=== PATIENT | female | born 1960 | race African-American/Black ===

== ENCOUNTER 2016-11-11 17:56 | Emergency (ER) | payer MEDICAID ==
[~2016-11-11] VITALS: Ht 165.1 cm; Wt 76.2 kg
[2016-11-11] MEDS ORDERED: ZANTAC150 MG ORAL (18:05)
[2016-11-11] MEDS ORDERED: ATENOLOL25 MG ORAL (18:05)
--- NOTE | 2016-11-11 18:58 | Emergency Room Report ---
History of Present Illness General Chief Complaint: General Complaint Source: Patient Present Illness HPI [id number] with 1 week with multiple episodes of sharp pain to mid-sternum, 3 min in duration per episode. Pain is non-radiating, not heavy, no associ nausea/ vomiting, diaphoresis. History of HTN but stopped taking medication to try to correct it "naturally." Doesnt smoke, drink or do drugs. No fam history of AMI at young age. No previous AMI, PE. Asymptomatic currently. Allergies: Coded Allergies: LISINOPRIL (Unverified Adverse Reaction, Unknown, Rash, 11/24/15) Patient History Past Medical History: HTN Past Surgical History: none Pertinent Family History: none Social History: Denies: alcohol use, drug use, smoking Now: No Immunizations: UTD Reviewed Nursing Documentation: PMH: Agreed, PSxH: Agreed Nursing Documentation-PMH Past Medical History: No History, Except For Hx Cardiac Problems: Yes Hx Hypertension: Yes Hx Pacemaker: No Hx Asthma: No Hx Diabetes: No Hx Cancer: No Hx Gastrointestinal Problems: Yes - GERD Hx Dialysis: No Hx Neurological Problems: No Hx Cerebrovascular Accident: No Hx Seizures: No Review of Systems All Other Systems: negative except mentioned in HPI Physical Exam Vital Signs Date Time Temp Pulse Resp B/P Pulse Ox O2 Delivery O2 Flow Rate FiO2 11/11/16 18:02 97.9 63 14 134/78 100 Room Air Sp02 EP Interpretation: reviewed, normal General Appearance: normal inspection, well appearing, no apparent distress, alert, GCS 15, non-toxic Head: normocephalic, atraumatic Eyes: bilateral eye EOMI, bilateral eye PERRL ENT: normal ENT inspection, hearing grossly normal, normal voice Neck: normal inspection, full range of motion, supple, no bony tend Respiratory: normal inspection, lungs clear, normal breath sounds, no respiratory distress, no retraction, no wheezing, other, chest symmetrical, palpation of chest normal, percussion normal Cardiovascular #1: regular rate, rhythm, no edema Gastrointestinal: normal inspection, normal bowel sounds, non tender, soft, no guarding, no hernia Genitourinary: no CVA tenderness Musculoskeletal: normal inspection, back normal, normal range of motion, Cheng' s Sign negative Neurologic: normal inspection, alert, oriented x3, responsive, race and sports book writer III-XII nml as tested, motor strength/tone normal, speech normal Psychiatric: normal inspection, judgement/insight normal, mood/affect normal Skin: normal inspection, normal color, no rash Medical Decision Making Diagnostic Impression: Primary Impression: Chest pain Qualified Codes: R07.9 - Chest pain, unspecified ER Course Chest pain for 1 week. Risk factors for CAD include gender, age, ethnicity, history of HTN ECG is NSR. No ischemia Labs: No leuks. H&h stable. Trop 0. Unlikely ACS given duration, sharp quality of pain, intermittent resolution, normal ECG and negative troponin HEART score 2: for score of 0-3: 0.9-1.7% risk of adverse cardiac event. Advised PMD followup for Stress test DC home EKG Diagnostic Results Rate: normal Rhythm: NSR ST Segments: no acute changes Rhythm Strip Diag. Results EP Interpretation: yes Rate: 60 Rhythm: NSR, no PVC's, no ectopy Last Vital Signs Date Time Temp Pulse Resp B/P Pulse Ox O2 Delivery O2 Flow Rate FiO2 11/11/16 18:02 97.9 63 14 134/78 100 Room Air Status: improved Disposition: HOME, SELF-CARE Referrals: NON PHYSICIAN (PCP) YAZMIN EPSTEIN M.D. Nov 11, 2016 18:58
[2016-11-11 19:00] LABS: BASOPHILS % (AUTO) 1.1 % (0.0-2.0); EOSINOPHILS % (AUTO) 1.9 % (0.0-3.0); LYMPHOCYTES % (AUTO) 40.7 % (20.0-45.0); MEAN CORPUSCULAR HEMOGLOBIN 29.4 PG (27.0-31.0); MEAN CORPUSCULAR HGB CONC 32.5 G/DL (32.0-36.0); MEAN CORPUSCULAR VOLUME 90 FL (80-99); MEAN PLATELET VOLUME 7.3 FL (6.5-10.1); NEUTROPHILS % (AUTO) 50.3 % (45.0-75.0); PLATELET COUNT 272 K/UL (150-450); RED BLOOD COUNT 4.73 M/UL (4.20-5.40); WHITE BLOOD COUNT 7.1 K/UL (4.8-10.8)
[2016-11-11 19:04] VITALS: BP 140/78
[2016-11-11 19:20] LABS: ALANINE AMINOTRANSFERASE 17 U/L (3-33); ALBUMIN/GLOBULIN RATIO 1.2 (1.0-2.7); ANION GAP 15 (5-15); ASPARTATE AMINO TRANSFERASE 27 U/L (5-40); CALCIUM 9.9 mg/dL (8.6-10.2); CARBON DIOXIDE 27 mEQ/L (20-30); CHLORIDE 94 mEQ/L (98-107); CREATININE 0.9 mg/dL (0.5-0.9); GLOMERULAR FILTRATION RATE > 60 mL/min (>60); HEMOLYSIS 2; POTASSIUM 4.6 mEQ/L (3.4-4.9); SODIUM 136 mEQ/L (135-145); TOTAL PROTEIN 8.7 g/dL (6.6-8.7); TROPONIN I < 0.30 ng/mL (<=0.30)
[2016-11-11 19:53] LABS: CKMB 2.7 ng/mL (< 3.8)
[2016-11-11 19:55] VITALS: BP 147/79
--- NOTE | 2016-11-12 10:18 | Diagnostic Imaging Report ---
Indication: Chest pain Technique: XRAY CHEST 1 V Comparison: 11/25/15 Findings: The cardiomediastinal silhouette is within normal limits. There is no focal consolidation, pneumothorax or pleural effusion. Osseous structures demonstrate no acute abnormality. Impression: No acute cardiopulmonary disease.
--- NOTE | 2016-11-15 16:15 | Cardiology Report ---
APPROVED REPORT EKG Measurement Heart [id number] Sinus bradycardia Otherwise normal ECG
== END 2016-11-11 19:58 | disposition home or self-care (01) ==
LOC: EMR 18:34
DX: R07.9 Chest pain, unspecified (principal); I10 Essential (primary) hypertension; K21.9 Gastro-esophageal reflux disease without esophagitis; Z79.899 Other long term (current) drug therapy
CPT/HCPCS: 36415; 71010; 80053; 82550; 82553; 84484; 85025; 93005; 99283

== ENCOUNTER → 2017-02-13 | Emergency (ER) | payer MEDICAID ==
[~2017-02-13] VITALS: Ht 165.1 cm; Wt 74.8 kg
[~2017-02-13] MED LIST: ALDACTAZIDE 251 EACH ORAL; ATENOLOL25 MG ORAL; CYCLOBENZAPRINE10 MG ORAL; HYDROCHLOROTHIA25 MG ORAL; IBUPROFEN600 MG ORAL; NORCO 5-325 TA1 EACH ORAL; Norco 5mg/325mg tab ORAL ONE; ZANTAC150 MG ORAL
[2017-02-13 18:26] VITALS: BP 158/89
--- NOTE | 2017-02-13 22:04 | Emergency Room Report ---
History of Present Illness General Chief Complaint: Pain Source: Patient Present Illness HPI 56-year-old female presents ED complaining of neck pain x3 days. Patient states that she has history of cervical radiculopathy previously diagnosed on MRI as. Patient states she had worsening of pain for last 3 days for she felt a pops and electronic shocks of her neck radiating to her shoulders. Pain is 8/ 10. No other aggravating or leading factors. Denies any recent trauma. Denies any other associated symptoms Allergies: Coded Allergies: LISINOPRIL (Unverified Adverse Reaction, Unknown, Rash, 11/24/15) Patient History Past Medical History: HTN, GERD Past Surgical History: none Pertinent Family History: none Social History: Denies: alcohol use, drug use, smoking Now: No Immunizations: UTD Reviewed Nursing Documentation: PMH: Agreed, PSxH: Agreed Nursing Documentation-PMH Hx Hypertension: Yes Hx Pacemaker: No Hx Asthma: No Hx Diabetes: No Hx Cancer: No Hx Gastrointestinal Problems: Yes - GERD Hx Dialysis: No Hx Neurological Problems: No Hx Cerebrovascular Accident: No Hx Seizures: No Review of Systems All Other Systems: negative except mentioned in HPI Physical Exam Vital Signs Date Time Temp Pulse Resp B/P Pulse Ox O2 Delivery O2 Flow Rate FiO2 02/13/17 17:48 97.9 62 16 158/89 99 Room Air Sp02 EP Interpretation: reviewed, normal General Appearance: no apparent distress, alert, GCS 15, non-toxic Head: normocephalic, atraumatic Eyes: bilateral eye PERRL, bilateral eye normal inspection ENT: hearing grossly normal, normal pharynx, no angioedema, normal voice Neck: full range of motion, supple/symm/no masses, tender lateral Respiratory: chest non-tender, lungs clear, normal breath sounds, speaking full sentences Cardiovascular #1: regular rate, rhythm, no edema Cardiovascular #2: 2+ carotid (R), 2+ carotid (L), 2+ radial (R), 2+ radial (L) , 2+ dorsalis pedis (R), 2+ dorsalis pedis (L) Gastrointestinal: normal bowel sounds, non tender, soft, non-distended, no guarding, no rebound Rectal: deferred Genitourinary: normal inspection, no CVA tenderness Musculoskeletal: back normal, gait/station normal, normal range of motion, non- tender Neurologic: alert, oriented x3, responsive, motor strength/tone normal, sensory intact, speech normal Psychiatric: judgement/insight normal, memory normal, mood/affect normal, no suicidal/homicidal ideation Reflexes: 3+ bicep (R), 3+ bicep (L), 3+ tricep (R), 3+ tricep (L), 3+ knee (R) , 3+ knee (L) Skin: normal color, no rash, warm/dry, well hydrated Lymphatic: no adenopathy Medical Decision Making Diagnostic Impression: Primary Impression: Neck pain ER Course Hospital Course 56-year-old F presents to ED complaining of neck pain. h/o cervical radiculopathy Differential diagnoses include: Fracture, dislocation, sprain, contusion Clinical course Patient placed on stretcher. After initial history and physical, I ordered pain medications and CT Cspine CT shows degenerative disc disease. Straightening. No acute process. On reassessment pain is improved Diagnosis - neck pain Stable and discharged to home with prescription for Motrin, [place], Flexeril. Apply ice, keep elevated. weight bear as tolerated. Followup with PMD. Return to ED if symptoms recur or worsen CT/MRI/US Diagnostic Results CT/MRI/US Diagnostic Results : Imaging Test Ordered: CT c spine Impression straightening. DDD. no acute fx Last Vital Signs Date Time Temp Pulse Resp B/P Pulse Ox O2 Delivery O2 Flow Rate FiO2 02/13/17 18:48 97.9 02/13/17 18:26 74 16 158/89 99 Room Air Status: improved Disposition: HOME, SELF-CARE Condition: Stable Scripts Cyclobenzaprine Hcl* (FLEXERIL*) 10 Mg Tablet 10 MG ORAL TID Y for Muscle Spasm, #20 TAB Prov: JUAN LAN M.D. 02/13/17 Hydrocodone Bit/Acetaminophen 5-325* (NORCO 5-325*) 1 Each Tablet 1 TAB ORAL Q6H Y for For Pain, #10 TAB 0 Refills Prov: JUAN LAN M.D. 02/13/17 Ibuprofen* (MOTRIN*) 600 Mg Tablet 600 MG ORAL Q8H Y for For Pain, #30 TAB 0 Refills Prov: JUAN LAN M.D. 02/13/17 Patient Instructions: Cervical Radiculopathy, [id number] JUAN LAN M.D. Feb 13, 2017 22:04
--- NOTE | 2017-02-14 08:59 | Diagnostic Imaging Report ---
Indication: PAIN Technique: Spiral acquisitions obtained through the cervical spine. No IV contrast utilized. Multiplanar reconstructions were generated. Total dose length product 263 mGycm. CTDIvol(s) 12 mGy. Dose reduction achieved using automated exposure control Comparison: None Findings: Normal bony alignment. Vertebral body heights are preserved. No acute fractures. No dislocations. At C3-4, there is minimal right and mild left neural foraminal stenosis. There is broad-based mild central posterior disc protrusion which, in combination with short pedicles, results in borderline narrowing of the spinal canal. The disc space is preserved. At C4-5, there is degenerative disc narrowing. There is severe bilateral neural foraminal stenosis. There is mild broad-based Central posterior disc protrusion which, in combination with short pedicles, results in borderline narrowing of the spinal canal. At C5-6, there is degenerative disc narrowing. There is moderate to severe bilateral neural foraminal stenosis. No significant disc bulge or protrusion. However, short pedicles result in borderline narrowing of the spinal canal. At C6-7, there is degenerative disc narrowing. There is mild right and moderate left neural foraminal stenosis. No significant disc bulge or protrusion. However, short pedicles result in borderline narrowing of the spinal canal. At the remaining levels, no significant disc bulge or protrusion, spinal stenosis, or neural foraminal narrowing. The soft tissues are significant for the presence of prominent lymph nodes measuring up to 2 cm long axis dimension bilaterally. Impression: No acute bony trauma Degenerative changes, as detailed on a level by level basis above. Prominent bilateral cervical nodes, nonspecific This agrees with the preliminary interpretation provided overnight by Dr. Partida The CT scanner at [facility] is accredited by the [employer] and the scans are performed using protocols designed to limit radiation exposure to as low as reasonably achievable to attain images of sufficient resolution adequate for diagnostic evaluation.
== END | disposition home or self-care (01) ==
LOC: EMR 18:10
DX: M54.2 Cervicalgia (principal); I10 Essential (primary) hypertension; K21.9 Gastro-esophageal reflux disease without esophagitis; Z88.8 Allergy status to other drugs, medicaments and biological substances
CPT/HCPCS: 72125; 99284